=== PATIENT | male | born 2005 | race African-American/Black ===

== ENCOUNTER 2025-01-18 11:17 | Emergency (ER) | payer OTHER ==
[~2025-01-18] VITALS: Ht 172.7 cm; Wt 82.0 kg
[2025-01-18 11:44] VITALS: TEMP 36.7; O2SAT 100
[2025-01-18] MEDS ORDERED: IBUP-2030 MT (12:55)
[2025-01-18] MEDS ORDERED: CYCL10TA21 MT (12:55)
[2025-01-18 13:11] VITALS: BP 128/63; PULSE 60; RESP 16; O2SAT 100
== END 2025-01-18 13:15 | disposition home or self-care (01) ==
LOC: ER 11:17
DX: R51.9 Headache, unspecified (principal); M54.9 Dorsalgia, unspecified; J45.909 Unspecified asthma, uncomplicated
CPT/HCPCS: 99284